=== PATIENT | male | born 1985 | race Caucasian/White ===

== ENCOUNTER 2020-12-23 14:19 | Emergency (ER) | payer SELFPAY ==
[~2020-12-23 14:19] MED LIST: AMOXICILLIN500 MG PO
[2020-12-23] MEDS ORDERED: NAPROXEN500 MG PO (15:21)
== END 2020-12-23 16:04 | disposition home or self-care (01) ==
LOC: FER 14:19
DX: R07.89 Other chest pain (principal); F17.210 Nicotine dependence, cigarettes, uncomplicated
CPT/HCPCS: 93005